=== PATIENT | female | born 1950 | race Caucasian/White ===

== ENCOUNTER 2024-12-31 14:39 | Outpatient (AMB) | payer MEDICARE, SELFPAY ==
--- NOTE | 2024-12-31 15:27 | MHC.OFFVIS ---
Intake Visit Reasons: 2m/ BFT Allergies No Known Allergies Allergy (Verified 12/31/24 15:32) Medication List - Last Reconciled 12/31/24 by Ciera Lunsford, ANIA bupropion HCl XL 300 mg PO QAM duloxetine 20 mg PO BID fluoxetine 20 mg PO DAILY lorazepam 0.5 mg PO BID PRN primidone 150 mg PO BID propranolol ER (Inderal LA) 80 mg PO DAILY rosuvastatin 10 mg PO DAILY HPI Comments Details: Tremor was horrible. More tremors in hands and legs. Leg tremors come and go, depends on position and what she is doing. Balance off at times, but no falls. Has trouble holding plate or cup steady, keeping food on utensil when eating, brushing teeth. No trouble swallowing. Handwriting was getting worse. She was RH and had to hold right hand steady with left hand when writing out checks. Tremors may be worse with stress. Mood was not so good lately, working with psychiatrist to adjust medications. She had some restlessness in her legs at night about 1-2x/month where she could not sleep and had to get up and walk around. Had consult at [facility] neurosurgery for DBS, but has decided to hold off for now. She tried propranolol 80mg twice a day, but felt weak and tremor was not much better so she reduced dose to 80mg daily. More depressed, treated with TMS, and seeing psychiatrist. She has a long history of major depression with ECT treatments in the 1990s and has been on different antidepressants. In 2014, she was started on duloxetine and she said after that she noticed tremors in her hands. Her mother did have some tremors. Review of Systems Const Denies chills, Denies daytime sleepiness, Reports difficulty sleeping, Denies fatigue, Denies fever(s), Denies frequent falls, Denies headache(s), Denies increased appetite, Denies poor appetite, Denies snoring, Denies weakness, Denies weight gain and Denies weight loss Eyes Denies loss of vision ENT Denies vertigo, Denies dizziness, Denies headache(s) and Reports neck pain Card Denies chest pain at rest, Denies chest pain with activity, Denies syncope, Denies leg edema, Denies palpitations, Denies dyspnea and Denies dyspnea on exertion Resp Denies cough, Denies dyspnea, Denies dyspnea on exertion and Denies snoring GI Denies abdominal pain, Denies constipation, Denies heartburn, Denies diarrhea and Denies nausea Denies urinary frequency, Denies urinary incontinence and Denies urinary urgency Musc Denies abnormal gait, Denies back pain, Reports myalgias, Reports arthralgias, Reports neck pain, Denies numbness and Denies tingling Neuro Denies abnormal gait, Denies vertigo, Denies dizziness, Denies syncope, Denies frequent falls, Denies headache(s), Denies lack of coordination, Denies loss of vision, Denies memory loss, Denies numbness, Denies Other visual disturbances, Denies restless legs, Denies seizure-like activity, Denies tingling, Denies paresthesias, Reports tremor(s) and Denies weakness Psych Reports anxiety, Reports depression, Denies auditory hallucinations, Denies memory loss and Denies visual hallucinations Endo Denies fatigue and Denies palpitations Physical Exam Const Other: General Appearance:? normal, in no acute distress. Heart:? S1, S2 normal, no murmurs. Lungs:? clear anteriorly and posteriorly. Musculoskeletal:? normal. Extremities:? no edema. Psych:? alert, oriented, cognitive function intact, cooperative with exam. Neuro Other: Abnormal Neurological Findings:?low to medium amplitude high-frequency tremor of the R thumb and of both legs with adduction and abduction of the thighs. Moderate tremor of BUE on sustained posture, increased with FTN. Mental Status: alert and oriented X 3. Normal attention, orientation, memory, and affect. Cranial Nerves: Pupils are equal, round, and reactive to light. External ocular muscles are intact. Visual mejia are full, no ptosis. Face is symmetrical, no facial weakness or droop. Facial sensations are normal. Tongue protrudes in midline. Palate elevates symmetrically. Shoulder shrugging is normal Motor Examination: Normal muscle tone, bulk and strength. No atrophy or fasciculations. No drift of the extended upper extremities. DTR 2+. Plantars are flexor. Straight Leg Raisin degrees. Sensory Exam: Normal light touch, temperature, pinprick, vibration, and joint-position sensations. Rhomberg sign is absent. Coordination: No ataxia. No titubation. [id number], colq-[id number] test, and rapid alternating movements were normal. Gait Exam: Within normal limits. Cerebellar Signs: [id number] as above. Extrapyramidal System: Tremor as above. No rigidity with normal facial expressions. No bradykinesia. No bradyphrenia. Normal arm swing and posture. No propulsion or retropulsion. Speech: Normal. No dysphasia or dysarthria. Assessment & Plan Assessment & Plan (1) Benign familial tremor: Code(s): G25.0 - Essential tremor Category: Medical Plan: Continue propranolol ER 80mg 1 capsule daily. Increase primidone 50mg 4 tablets twice a day. She had consult with [facility] in the recent past, prefers to hold off on DBS at this time. (2) Restless leg syndrome: Code(s): G25.81 - Restless legs syndrome Category: Medical Plan: Symptoms were infrequent at this time. Medications: New primidone 200 mg (4 x 50 mg) PO BID 720 tabs 1RF 90 days Coding Level of Care Code Est Pt Level 4 (94387) Diagnoses Benign familial tremor G25.0 Restless leg syndrome G25.81
== END 2024-12-31 15:52 | disposition home or self-care (01) ==
LOC: HO.HSM 14:40
PROVIDERS: PCP Internal Medicine; Visit Provider Registered Nurse
DX: G25.0 Essential tremor (principal); G25.81 Restless legs syndrome
CPT/HCPCS: 99214

== ENCOUNTER → 2024-12-31 14:39 | Outpatient (BNVA) | payer MEDICARE, SELFPAY | PROVIDERS: PCP Internal Medicine; Visit Provider Registered Nurse | DX: G25.0 Essential tremor (principal); G25.81 Restless legs syndrome | CPT/HCPCS: 99212 ==

== ENCOUNTER 2025-06-01 14:15 | Outpatient (AMB) | payer MEDICARE, SELFPAY ==
--- NOTE | 2025-06-01 14:31 | A.OFFVIS_ITS ---
Intake Visit Reasons: follow up Allergies No Known Allergies Allergy (Verified 06/01/25 14:55) Medication List - Last Reconciled 06/01/25 by Ciera Lunsford CNP bupropion HCl XL 300 mg PO QAM cetirizine 10 mg PO DAILY duloxetine 30 mg PO DAILY duloxetine 60 mg PO DAILY lorazepam 0.5 mg PO BID PRN primidone 200 mg (4 x 50 mg) PO BID 90 days propranolol ER (Inderal LA) 80 mg PO DAILY rosuvastatin 10 mg PO DAILY HPI Comments Details: No significant improvement in tremors with increased dose of primidone. More tired during the day, on multiple medications for depression. She did not want to go up on propranolol as BP runs low. She gets some lightheaded dizziness when changing positions and fell earlier this month when getting up from couch, did not hit head. Balance off at times, tremors in legs at times that come and go, depend on position and what she is doing. No falls otherwise. Tremors in hands, noticing more tremor to L hand. She was RH and had to hold right hand steady with left at times such as when writing out checks or using spatula. Has trouble holding plate or cup steady, keeping food on utensil when eating, brushing teeth. No trouble swallowing. Mood was not so good lately, working with psychiatrist. Uses lorazepam as needed, which helps with tremors some but does not like to take and makes her tired. Some restlessness in her legs at night, about 3x/month where she cannot sleep and has to get up and walk around. She had labs that were positive for celiac and has appt with GI in 08/2025. She also has appt with pulmonary in 06/2025 for ?COPD. Had consult at [facility] neurosurgery for DBS, but has decided to hold off for now. She tried propranolol 80mg twice a day, but felt weak and tremor was not much better so she reduced dose to 80mg daily. More depressed, treated with TMS, and seeing psychiatrist. She has a long history of major depression with ECT treatments in the 1990s and has been on different antidepressants. In 2014, she was started on duloxetine and she said after that she noticed tremors in her hands. Her mother did have some tremors. [facility] Medical History (Updated 06/01/25 @ 14:34 by Ciera Lunsford CNP) GERD (gastroesophageal reflux disease) Hyperlipidemia Depression Review of Systems Const Denies chills, Denies daytime sleepiness, Reports difficulty sleeping, Denies fatigue, Denies fever(s), Denies frequent falls, Denies headache(s), Denies increased appetite, Denies poor appetite, Denies snoring, Denies weakness, Denies weight gain and Denies weight loss Eyes Denies loss of vision ENT Denies vertigo, Denies dizziness, Denies headache(s) and Reports neck pain Card Denies chest pain at rest, Denies chest pain with activity, Denies syncope, Denies leg edema, Denies palpitations, Denies dyspnea and Denies dyspnea on exertion Resp Denies cough, Denies dyspnea, Denies dyspnea on exertion and Denies snoring GI Denies abdominal pain, Denies constipation, Denies heartburn, Denies diarrhea and Denies nausea Denies urinary frequency, Denies urinary incontinence and Denies urinary urgency Musc Denies abnormal gait, Denies back pain, Reports myalgias, Reports arthralgias, Reports neck pain, Denies numbness and Denies tingling Neuro Denies abnormal gait, Denies vertigo, Denies dizziness, Denies syncope, Denies frequent falls, Denies headache(s), Denies lack of coordination, Denies loss of vision, Denies memory loss, Denies numbness, Denies Other visual disturbances, Denies restless legs, Denies seizure-like activity, Denies tingling, Denies paresthesias, Reports tremor(s) and Denies weakness Psych Reports anxiety, Reports depression, Denies auditory hallucinations, Denies memory loss and Denies visual hallucinations Endo Denies fatigue and Denies palpitations Physical Exam Const Other: General Appearance:? normal, in no acute distress. Heart:? S1, S2 normal, no murmurs. Lungs:? clear anteriorly and posteriorly. Musculoskeletal:? normal. Extremities:? no edema. Psych:? alert, oriented, cognitive function intact, cooperative with exam. Neuro Other: Abnormal Neurological Findings:?low to medium amplitude high-frequency tremor of the R thumb and of both legs with adduction and abduction of the thighs. Moderate tremor of BUE on sustained posture, increased with FTN. Mental Status: alert and oriented X 3. Normal attention, orientation, memory, and affect. Cranial Nerves: Pupils are equal, round, and reactive to light. External ocular muscles are intact. Visual mejia are full, no ptosis. Face is symmetrical, no facial weakness or droop. Facial sensations are normal. Tongue protrudes in midline. Palate elevates symmetrically. Shoulder shrugging is normal Motor Examination: Normal muscle tone, bulk and strength. No atrophy or fasciculations. No drift of the extended upper extremities. DTR 2+. Plantars are flexor. Sensory Exam: Normal light touch, temperature, pinprick, vibration, and joint- position sensations. Rhomberg sign is absent. Coordination: No ataxia. No titubation. Gait Exam: Within normal limits. Cerebellar Signs: [id number] as above. Extrapyramidal System: Tremor as above. No rigidity with normal facial expressions. No bradykinesia. No bradyphrenia. Normal arm swing and posture. No propulsion or retropulsion. Speech: Normal. Assessment & Plan Assessment & Plan (1) Benign familial tremor: Code(s): G25.0 - Essential tremor Category: Medical Plan: No significant improvement in tremor with increased dose of primidone and she was more tired during the day. Decrease primidone 50mg 3 tablet twice a day. Continue propranolol ER 80mg 1 capsule daily. * She did not want to try higher dose of propranolol as blood pressure runs low, and she has some lightheaded dizziness with position changes. Start gabapentin 300mg 1 capsule at bedtime x1 week, then 1 capsule twice a day, use/side effects reviewed. She had consult with [facility] in the recent past, but prefers to hold off on DBS at this time. Follow up in 6 weeks or sooner as needed. (2) Restless leg syndrome: Code(s): G25.81 - Restless legs syndrome Category: Medical Plan: Iron studies ordered. Gabapentin may also help with RLS symptoms. Orders: Orders IRON PROFILE Today G25.81 - Restless legs syndrome Medications: New gabapentin 300 mg orally 1 capsule at bedtime x1 week then 1 capsule twice a day; 60 caps 2RF 30 days Changed From propranolol ER (Inderal LA) 80 mg PO DAILY To propranolol ER (Inderal LA) 80 mg PO DAILY 90 caps 1RF 90 days From primidone 200 mg (4 x 50 mg) PO BID 90 days 720 tabs 1RF To primidone 150 mg (3 x 50 mg) PO BID 540 tabs 1RF 90 days Coding Level of Care Code Est Pt Level 4 (80363) Diagnoses Benign familial tremor G25.0 Restless leg syndrome G25.81
--- OUTSIDE RECORDS SUMMARY | 2025-06-01 16:38 | XMS_ITS | Patient Health Record ---
Author Organization [facility] Address [address] [place] [address] Care Team Providers Care Hospital Plan Administrator Name Role Phone PEPE CRISOSTOMO Primary Care Provider [phone] PETEY BADILLO Unavailable [phone] ROSALIA PARSONS Unavailable [phone] Allergies Allergen (clinical drug ingredient) Drug/Non Drug Allergy documented on EMR Reaction Allergy Type Onset Date Status contrast (uncoded) hives Allergy Active Cats Unknown Allergy Active codeine Codeine Unknown Drug Allergy Active Pollen (e.g. tree, grass) Unknown Allergy Active Reason For Referral Reason 09/12/24 W APPT Magali ac Disease Diagnosis 1 Celiac disease (K90. 0) Referral Organization [facility] Min mejia Referring Provider First Name PEPE Referring Provider Last Name KRANTHI Referring Provider Speciality Internal edicine Referred Provider MIKA ENRIQUEZ Referred Provider Specialty Gastroentero logy Clinical Notes Consultation [facility] for question celiac disease make sure a copy of my note and all the labs get over to them Referral Priority Routine Reason 03/11/25 w appt Refe rral to [facility] allergy and immunology Dr. Aliza Rider severe allergies Diagnosis 1 Allergy, subsequent encounter (T78.40XD) Referral Organization [facility] [employer] Referring Provider First Name PEPE Referring Provider Last Name KRANTHI Referring Provider Speciality Internal edicine Referred Provider ALIZA RIDER Referred Provider Specialty Allergy/Immu nology General Notes SOBIANahomy P Admin 01/2025 02:16:18 PM > faxed medical referral, note and most recent labs to [facility] at [phone], no referral required Referral Priority Routine Reason 03/12/[address] Carroll Echavarria pulmonary COPD Diagnosis 1 Chronic obstructive pulmonary disease, unspecified (J44.9) Referral Organization [facility] jefferycam Referring Provider First Name PEPE Referring Provider Last Name KRANTHI Referring Provider Speciality [facility] Referred Provider NISHANT HENRIQUEZ Referred Provider Specialty Pulmonary Di seases General Notes SOBIA,Nahomy P Admin 02/2025 12:20:37 PM > faxed medical referral, note and most recent labs to [phone]>no referral required Referral Priority Routine Reason 03/13/25 w appt Cons ultation [facility] GI for possible celiac disease recommendations regarding further evaluation Diagnosis 1 Celiac disease (K90. 0) Referral Organization [facility] roberto Referring Provider First Name PEPE Referring Provider Last Name KRANTHI Referring Provider Speciality [facility] Referred Provider MIKA ENRIQUEZ Referred Provider Specialty Gastroentero logy General Notes SOBIA,Nahomy P Admin 03/2025 11:11:45 AM > faxed medical referral, note and most recent labs to [phone]>no referral required, Iveth RAMSAY [place] 03/13/2025 12:45:36 PM > referral sent Referral Priority Routine Reason 05/06/25 w appt Refe rral to [facility] for abdominal bloating Diagnosis 1 Abdominal bloating ( R14.0) Referral Organization [facility] roberto Referring Provider First Name PEPE Referring Provider Last Name KRANTHI Referring Provider [facility] Internal [facility] Referred Provider MIKA ENRIQUEZ Referred Provider Specialty Gastroentero logy General Notes SOBIA,Nahomy P Admin 08/2024 03:41:49 PM > faxed medical referral, note and most recent labs to [phone] Referral Priority Routine Reason (05/12/25 Wtg appt) R eferral to GI for chronic mixed diarrhea and constipation. PMH of IBS. tTG-IgA testing positive. Need testing for confirmation of celiac disease. Requesting SIBO testing. She states she no longer wants to go to [facility] as they cancelled her appt. 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 PMH of IBS. tTG-IgA testing positive. Need testing for confirmation of celiac disease. Requesting SIBO testing. She states she no longer wants to go to [facility] GI as they cancelled her appt., SOBIA Zulay Augustin Referrals 05/12/2025 04:42:07 PM > doctor referral with note has been faxed to [facility] at [phone] Referral Priority Routine Medications Medication SIG (Take, Route, Frequency, Duration) Notes Start Date End Date Status FLUoxetine HCl 60 MG Tablet 1 tablet Orally Once a day Not-Taking buPROPion HCl ER (XL) 300 MG Tablet Extended Release 24 Hour 1 tablet in the morning Orally Once a day Prescribed by psych provider Active Famotidine 20 MG Tablet 1 tablet Orally Once a day; Duration: 90 days As needed Active Dicyclomine HCl 20 MG Tablet 1 tablet Orally once dailly; Duration: 90 days As needed Active Rosuvastatin Calcium 10 MG Tablet 1 tablet Orally Once a day; Duration: 90 days m-f Active Fruit & Vegetable Daily - Capsule as directed Orally Active Multivitamin Adults 50+ - Tablet as directed Orally Active Propranolol HCl 80 MG Tablet 1 tablet Orally daily Active Ibuprofen PRN Active Primidone 50 MG Tablet 3tabs am, 3 tabs pm Orally bid Active Cetirizine HCl 10 MG Tablet 1 tablet Orally Once a day Prescribed by jewelry consultant Active LORazepam 0.5 MG Tablet 1 tablet Orally Twice a day; Duration: 30 days 11/12/2023 Active buPROPion HCl ER (SR) 150 MG Tablet Extended Release 12 Hour And fluoxetine you are still on 60 mg 60 and 20 so 80 total Orally Once a day Not-Taking DULoxetine HCl 60 MG Capsule Delayed Release Particles 1 capsule Orally Once a day + 30 mg. 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: no alcohol use: no drug use: no MJ in 1980s, non e currently Hobbies/Exercise habits: none Coffee/Tea/Soda: 1-2 cups of cof fee and 1-2 glasses of soda per day Marital Status , in a mo nogamous relationship experience no Living with boyfriend Problems Problem Type SNOMED Code ICD Code Onset Dates Problem Status W/U Status Risk Notes Problem Gastro-esophagea l reflux disease without esophagitis (699131241) Gastro-esophagea l reflux disease without esophagitis (K21.9) Active confirmed Problem Essential hypertension (11694224) Essential (primary) hypertension (I10) Active confirmed Problem Chronic obstructive pulmonary disease (88987233) Chronic obstructive pulmonary disease, unspecified (J44.9) Active confirmed Problem Chronic fatigue syndrome (disorder) (12019855) Chronic fatigue, unspecified (R53.82) Active confirmed Problem Disorder of lipoprotein storage and metabolism (disorder) (673403371) Disorder of lipoprotein metabolism, unspecified (E78.9) Active confirmed Problem Irritable bowel syndrome with diarrhea (873389811) Irritable bowel syndrome with diarrhea (K58.0) Active confirmed Problem Celiac disease (291836668) Celiac disease (K90.0) Active confirmed Problem Recurrent major depression in remission (48712281) Recurrent major depressive disorder, in partial remission (F33.41) Active confirmed Problem Irritable bowel syndrome (02442378) 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) Active confirmed Vital Signs Blood pressure diastolic 81 mm Hg 05/12/2025 Height 64 in 05/12/2025 Blood pressure systolic 118 mm Hg 05/12/2025 Weight 210.2 lbs 05/12/2025 BMI 36.08 kg/m2 05/12/2025 Encounters Encounter Location Date Provider Diagnosis [address] [address] 09/09/2024 PEPE CRISOSTOMO Disorder of lipoprotein metabolism, unspecified E78.9 ; Gastro-esophageal reflux disease without esophagitis K21.9 ; Chronic fatigue, unspecified R53.82 ; Chronic obstructive pulmonary disease, unspecified J44.9 ; Essential (primary) hypertension I10 ; Tremor R25.1 ; Recurrent major depressive disorder, in partial remission F33.41 ; Alkaline phosphatase elevation R74.8 ; Encounter for screening mammogram for malignant neoplasm of breast Z12.31 ; Chronic diarrhea K52.9 and Osteoporosis screening Z13.[address] [id number] 06/18/2024 ROSALIA PARSONS Flu-like symptoms R68.89 [facility] [address] [place] [address] 03/11/2025 PEPE CRISOSTOMO Disorder of lipoprotein metabolism, unspecified E78.9 ; Gastro-esophageal reflux disease without esophagitis K21.9 ; Chronic obstructive pulmonary disease, unspecified J44.9 ; Essential (primary) hypertension I10 ; Osteoporosis screening Z13.820 ; Encounter for screening mammogram for malignant neoplasm of breast Z12.31 ; Colon cancer screening Z12.11 ; Deficiency of other specified B group vitamins E53.8 and Allergy, subsequent encounter T78.40XD [address] [address] 05/12/2025 PETEY BADILLO Mixed irritable regine l syndrome K58.2 and Epigastric pain R10.[address] [address] 03/13/2025 PEPE CRISOSTOMO [place] [phone] 03/13/2025 PEPE CRISOSTOMO Celiac disease K90.0 [facility] [address] [place] [phone] 05/20/2025 PETEY BADILLO [address] [address] 03/12/2025 PEPE CRISOSTOMO [place] [phone] 09/19/2024 PEPE CRISOSTOMO [address] [address] 09/10/2024 PEPE CRISOSTOMO Celiac disease K90.0 [facility] [address] [place], [place] [phone] 09/10/2024 PEPE CRISOSTOMO Disorder of lipoprotein metabolism, unspecified E78.[address] [address] 09/09/2024 PEPE CRISOSTOMO [place] [phone] 06/18/2024 PEPE CRISOSTOMO [place] [phone] 06/17/2024 PEPE CRISOSTOMO [facility] [place] [phone] 06/01/2025 PEPE CRISOSTOMO [facility] [address] [place] [address] 05/06/2025 PEPE CRISOSTOMO [facility] [address] [place] [address], [place] [address] 05/06/2025 PEPE CRISOSTOMO Abdominal bloating R14.0 [facility] [address] [place] [address], [place] [address] 05/14/2025 PETEY BADILLO [facility] [address] [place] [phone] 05/07/2025 PEPE CRISOSTOMO [facility] [address] [place] [phone] 04/09/2025 PEPE CRISOSTOMO [address] [place] [address] 04/08/2025 PEPE CRISOSTOMO [address] [address] 03/20/2025 PEPE CRISOSTOMO Assessments Encounter Date Diagnosis (ICD Code) Assessment Notes Treatment Notes Treatment Clinical Notes Section Notes 06/18/2024 Flu-like symptoms (ICD-10 - R68.89) Suggested she come to [facility] for covid, flu, RSV testing - she declines. Will try to obtain tests at pharmacy and follow up with results. Supportive care reviewed - push fluids, tylenol as directed, nasal saline, flonase, Tussin DM. IF symptoms are not improving by end of week knows to follow up 09/09/2024 Gastro-esophagea l reflux disease without esophagitis (ICD-10 - K21.9) Stable. Continue with Pepcid doing well minimize caffeine peppermint spearmint chocolate and citrus send minimal elevation 09/09/2024 Disorder of lipoprotein metabolism, unspecified (ICD-10 - E78.9) Continue with rosuvastatin review of systems negative for side effects check lipid profile total cholesterol goal is 200 LDL less than 100. Recommend increasing exercise low-fat Mediterranean diet 09/10/2024 Disorder of lipoprotein metabolism, unspecified (ICD-10 - E78.9) 03/11/2025 Gastro-esophagea l reflux disease without esophagitis (ICD-10 - K21.9) Continue PPI check B12 follow-up with acid level once a year while on medication 03/11/2025 Disorder of lipoprotein metabolism, unspecified (ICD-10 - E78.9) Continue rosuvastatin. Check lipid profile check LFTs LDL goal less than 100 less than 70 optimally follow-up in 6 months 05/06/2025 Abdominal bloating (ICD-10 - R14.0) 05/12/2025 Epigastric pain (ICD-10 - R10.13) Generalized epigastric tenderness on exam. No focalized tenderness. Labs and CT ordered. Will follow with results. Monitor for new or worsening sxs and seek care urgently if they develop. 05/12/2025 Mixed irritable bowel syndrome (ICD-10 - K58.2) Generalized epigastric tenderness on exam. Labs ordered. CT with oral contrast ordered. Pt allergy to IV contrast. No issues with oral contrast in past. GI referral placed to [facility] for confirmation of Celiac disease and SIBO testing. Pt will call as well. Provided information for provider network analyst. Recommend taking Tagorize probiotic. Monitor for new or worsening of sxs and call if they develop. Will follow with lab and imaging results. 03/13/2025 Celiac disease (ICD-10 - K90.0) 09/10/2024 Celiac disease (ICD-10 - K90.0) 03/11/2025 Chronic obstructive pulmonary disease, unspecified (ICD-10 - J44.9) Follow-up chest x-ray. Consultation Dr. Carroll Echavarria pulmonary 09/09/2024 Chronic fatigue, unspecified (ICD-10 - R53.82) Stable by physical exam review of systems check routine labs 09/09/2024 Chronic obstructive pulmonary disease, unspecified (ICD-10 - J44.9) Physical exam normal no symptoms at the present time she note patient stopped smoking more than 20 years ago 03/11/2025 Essential (primary) hypertension (ICD-10 - I10) Blood pressure stable excellent control no change in therapy check EKG sinus rhythm no change. EKG sinus bradycardia 55 secondary to beta-gabriela 03/11/2025 Osteoporosis screening (ICD-10 - Z13.820) Bone density 2024 osteopenia recommend weightbearing exercise calcium plus vitamin D twice daily no alcohol 09/09/2024 Essential (primary) hypertension (ICD-10 - I10) Blood pressure well-controlled no change in therapy 09/09/2024 Tremor (ICD-10 - R25.1) Chronic ongoing stable neurologically no change. Saw [facility] neurosurgical specialist for possible surgical correction of tremor patient declines at the present time therefore follow-up with local neurologist and continue with primidone and beta-gabriela 03/11/2025 Encounter for screening mammogram for malignant neoplasm of breast (ICD-10 - Z12.31) Requisition given to patient for mammogram 03/11/2025 Colon cancer screening (ICD-10 - Z12.11) Colonoscopy up-to-date recheck 5 years 09/09/2024 Recurrent major depressive disorder, in partial remission (ICD-10 - F33.41) Stable doing well 09/09/2024 Alkaline phosphatase elevation (ICD-10 - R74.8) Recheck alk phos check isoenzymes 03/11/2025 Deficiency of other specified B group vitamins (ICD-10 - E53.8) 09/09/2024 Encounter for screening mammogram for malignant neoplasm of breast (ICD-10 - Z12.31) Rx given to patient for mammogram 03/11/2025 Allergy, subsequent encounter (ICD-10 - T78.40XD) Referral to [facility] referral placed check CBC check HIV check hep C virus antibody check IgE and a 09/09/2024 Chronic diarrhea (ICD-10 - K52.9) Check stool culture check thyroid check CBC. Colonoscopy up-to-date. Trial of lactose-free diet for 2 weeks. Will also add Questran 1 packet today follow-up in 2 weeks if no improvement will recommend probable follow-up with GI 09/09/2024 Osteoporosis screening (ICD-10 - Z13.820) Calcium 1200 today vitamin D 800 today weightbearing exercise check bone density order given the patient 06/18/2024 Other I am seeing the patient under the supervision of the co-signing physician. The physician was available for consultation at the time of the office visit. Plan Of Treatment Pending Test Test Name Order Date EKG 04/18/2023 Mammogram Screening Bilatera l, Perform ultrasound guided aspiration and/or breast biopsy if warranted 09/09/2024 CT Abdomen & Pelvis with Oral contrast O nly 05/12/2025 Future Test Test Name Order Date COMPLETE URINALYSIS 04/15/2023 ALKALINE PHOSPHATASE ISOENZYMES 07/05/19 LIPID PANEL 08/20/2023 BASIC METABOLIC PANEL 08/20/2023 HEPATIC FUNCTION PANEL 08/20/2023 ALKALINE PHOSPHATASE ISOENZYMES 08/20/19 24 Alk Phos Isoenzyme-[id number] 01/05/2024 [id number] 01/05/2024 Mitochondrial (M2) Antibody-[id number] 01/04 Lipid Panel-[id number] 01/05/2024 Hepatic Function Panel [id number] 2023 GI Profile, Stool, PCR-[id number] 09/09/2024 C-Reactive Protein, [id number] 025 Lipid Panel-[id number] 10/22/2024 Insurance Providers Payer Name Payer Address Payer Phone Subscriber Number Group Number Insured Name Patient Relationship to Insured Coverage Start Date Coverage End Date [employer] [place] [employer] [address] [place] [phone] [id number] ROXANN GONZALEZ Self - patient is the insured Medical (General) History Medical History History ICD Code IBS Depression - sees psychiatri c provider Mary Yates and therapist Martha Swain Anxiety sleep apnea essential tremmor GERD athritis Allergies / envirommental lumbar DDD dyslipidemia. Total choleste rol 151 triglycerides 114 HDL 71 LDL November colonoscopy 01/2020: repeat 3 years hearing loss Vaccination status COVID 4 s hots. Flu shot q. year. Pneumovax x2. Tdap 2021. Shingrix x2. Colonoscopy January 2020 recheck January 2023 due L5-L6 PFTs January 2022. Normal Gynecology Dr. Wang Flores Bone density January 20202022 B12 folic acid TSH normal. Heavy me [place] blood screen negative. MRI lumbar spine November 2022 degenerative disc disease no change from 2021 2022 MRI of the brain mild v olume is in chronic small vessel ischemic changes CT of the chest May emphysema less than 5 mm pulmonary nodule stable from 2017 and 2019 Mammogram March 2023 negative Colonoscopy August 2023 Dr. Lawrence Al Chest x-ray August 2023 no active disease Bone density January 2025 osteopenia with acceptable FRAX report Colonoscopy January 2024 smal l polyps resected diverticulosis recheck in 5 years Surgical History Surgery Date(Month/Year) Hemmorhoids 2018 Cataract removal both eyes 2016 C5 vertebral fusion 2011 LK cartilage repair 2011 gall bladder removal 1998 colonoscopy Tonsils 1971 Hospitalization History Reason Date(Month/Year) convient med in [place] 06/2023 [facility] - depression 07/2022 [facility] - depression 06/2022
== END 2025-06-01 15:14 | disposition home or self-care (01) ==
LOC: HO.HSM 14:15
PROVIDERS: PCP Internal Medicine; Visit Provider Registered Nurse
DX: G25.0 Essential tremor (principal); G25.81 Restless legs syndrome
CPT/HCPCS: 99214

== ENCOUNTER → 2025-06-01 14:15 | Outpatient (BNVA) | payer MEDICARE, SELFPAY | PROVIDERS: PCP Internal Medicine; Visit Provider Registered Nurse | DX: G25.0 Essential tremor (principal); G25.81 Restless legs syndrome; R42 Dizziness and giddiness; Z79.899 Other long term (current) drug therapy | CPT/HCPCS: 99212 ==